=== PATIENT | male | born 1990 | race Caucasian/White ===

== ENCOUNTER 2023-02-25 23:19 | Emergency (ER) | payer OTHER ==
[~2023-02-25] VITALS: Ht 177.8 cm; Wt 163.5 kg
[~2023-02-25 23:19] MED LIST: HYDROCODON-ACE1 EA10 PO; ONDANSETRON ODT4 MG PO
--- OUTSIDE RECORDS SUMMARY | 2023-02-25 23:26 | XMS ---
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 - 2 Visits in 30 Days CARE PROVIDERS -Sonja- Dentist: Activities Volunteer [facility] PHONE: [phone] [facility]ARG[facility] Current PHONE: [phone] Jennifer has no Care Guidelines for this patient. Pee VISIT COUNT (12 MO.) [facility] [address] TOTAL 8 NOTE: Visits indicate total known visits. ED/UCC VISIT TRACKING (12 MO.) 02/25/2023 23:[address] [facility] [place] TYPE: Emergency COMPLAINT: - COUGH 01/27/2023 22:[address] [facility] [place] TYPE: Emergency COMPLAINT: - BLOOD IN STOOL DIAGNOSES: - Acute pancreatitis without necrosis or infection, unspecified - Melena - Unspecified abdominal pain 11/05/2022 20:02 [facility] TYPE: Emergency DIAGNOSES: - Benign paroxysmal vertigo, unspecified ear 09/07/2022 22:00 [facility] TYPE: Emergency DIAGNOSES: - Unspecified multiple injuries, initial encounter 08/19/2022 21:28 [facility] TYPE: Emergency DIAGNOSES: - Plantar fascial fibromatosis 05/06/2022 14:37 [facility] TYPE: Emergency DIAGNOSES: - Diarrhea, unspecified - Left lower quadrant pain - ABDOMINAL PAIN 05/05/2022 01:02 [facility] [place] [place] [facility] DIAGNOSES: - Acute gastritis without bleeding - Abd pain,Emesis - GI Bleeding 04/09/2022 12:33 [facility] TYPE: Emergency DIAGNOSES: - Acute upper respiratory infection, unspecified - Elevated blood-pressure reading, without diagnosis of hypertension INPATIENT VISIT TRACKING (12 MO.) No inpatient visits to display in this time frame [email or web address]
[2023-02-26 01:39] LABS: BASOPHILS 0.3 % (0-2); EOSINOPHILS 2.6 % (0-6); HEMOGLOBIN 13.5 g/dL (12.0-18.0); MCH 30.1 (27-36); MCHC 34.7 g/dl (30-36); MCV 86.7 fl (81-99); NEUTROPHILS 77.1 % (39-80); PLATELET COUNT 157 K/uL (140-440); RBC 4.49 M/ul (4.3-5.7)
[2023-02-26 01:54] LABS: ALBUMIN 3.8 g/dL (3.4-5.0); ALBUMIN/GLOBULIN RATIO 1.12 (1.1-2.4); ANION GAP 13.8 (7-21); BILIRUBIN, TOTAL 0.9 ng/dL (0.2-1.0); BUN/CREATININE RATIO 12.19 (6.0-28.6); CALCIUM 7.9 mg/dL (8.5-10.1); CREATININE, SERUM 1.23 mg/dL (0.70-1.30); MAGNESIUM 1.7 mg/dL (1.8-2.4); POTASSIUM 3.8 mmol/L (3.5-5.1); PROTEIN, TOTAL 7.2 g/dL (6.4-8.2)
[2023-02-26 02:00] LABS: BILIRUBIN, URINE NEGATIVE (negative); BLOOD/HGB, URINE NEGATIVE (Negative); KETONE, URINE NEGATIVE (Negative); LEUK ESTERASE, URINE NEGATIVE (negative); NITRITE, URINE NEGATIVE (negative)
[2023-02-26 02:08] LABS: INFLUENZA B NAA NEGATIVE (NEGATIVE); RESPIRATORY SYNCYTIAL VIR NAA NEGATIVE (NEGATIVE)
[2023-02-26] MEDS ORDERED: TAMIFLU75 MG PO (02:24)
[2023-02-26 03:05] VITALS: BP 101/77
== END 2023-02-26 03:05 | disposition home or self-care (01) ==
LOC: ED 23:19
PROVIDERS: Internal Medicine
DX: J10.1 Influenza due to other identified influenza virus with other respiratory manifestations (principal); I10 Essential (primary) hypertension; Z88.5 Allergy status to narcotic agent; Z20.822 Contact with and (suspected) exposure to COVID-19
CPT/HCPCS: 36415; 71045; 80053; 81003; 83735; 85025; 87502; 94640; 96374; 99284-25; A9270; C9803; J2405; J7121; U0002

== ENCOUNTER 2023-05-02 02:56 | Emergency (ER) | payer OTHER ==
[~2023-05-02] VITALS: Ht 177.8 cm; Wt 161.3 kg
[~2023-05-02 02:56] MED LIST changes: +TAMIFLU75 MG PO
[2023-05-02] MEDS ORDERED: CYCLOBENZAPRINE10 MG PO (03:32)
[2023-05-02] MEDS ORDERED: methylPREDNISolone 4 MG HOME.PACK PO ONE (03:45)
[2023-05-02] MEDS ORDERED: CYCLOBENZAPRINE HCL 10 MG HOME.PACK PO ONE (03:45)
[2023-05-02 03:49] VITALS: BP 142/73
== END 2023-05-02 03:50 | disposition home or self-care (01) ==
LOC: ED 02:56
DX: S39.012A Strain of muscle, fascia and tendon of lower back, initial encounter (principal); I10 Essential (primary) hypertension; F41.9 Anxiety disorder, unspecified; X50.1XXA Overexertion from prolonged static or awkward postures, initial encounter; Z88.5 Allergy status to narcotic agent
CPT/HCPCS: 99283

== ENCOUNTER 2023-07-15 15:53 | Emergency (ER) | payer BC ==
[~2023-07-15] VITALS: Ht 177.8 cm; Wt 163.2 kg
[~2023-07-15 15:53] MED LIST changes: +CYCLOBENZAPRINE10 MG PO
[2023-07-15] MEDS ORDERED: PSEUDOEPHEDRINE HCL 30 MG TAB PO ONE (18:30)
[2023-07-15] MEDS ORDERED: MECLIZINE HCL 25 MG TAB PO ONE (18:30)
[2023-07-15] MEDS ORDERED: MECLIZINE HCL25 MG PO (18:41)
[2023-07-15] MEDS ORDERED: NASAL DECONGEST30 MG PO (18:41)
[2023-07-15 18:58] VITALS: BP 118/83
--- NOTE | 2023-07-19 07:18 | EKG ---
[facility] [address] [facility] [place], [place] [address] Signed Normal sinus rhythm Normal ECG No previous ECGs available Confirmed by Conor Ahmadi MD ([id number]) on 07/19/2023 7:19:10 AM Electronically Signed By: OCNOR AHMADI 07/19/23 0718 PATIENT NAME: LAST MURRAY FLORESITA Electrocardiogram DATE OF : 88 PHYSICIAN: CONOR AHMADI REPORT #: [id number] REPORT IS CONFIDENTIAL AND NOT TO BE RELEASED WITHOUT AUTHORIZATION
== END 2023-07-15 18:59 | disposition home or self-care (01) ==
LOC: ED 15:53
DX: H81.12 Benign paroxysmal vertigo, left ear (principal); I10 Essential (primary) hypertension; Z88.5 Allergy status to narcotic agent
CPT/HCPCS: 80053; 83735; 84484; 85025; 93005; 93010; 99284-25; A9270

== ENCOUNTER 2024-01-15 13:37 | Emergency (ER) | payer OTHER ==
[~2024-01-15] VITALS: Ht 177.8 cm; Wt 160.8 kg
[~2024-01-15 13:37] MED LIST changes: +MECLIZINE HCL25 MG PO; +NASAL DECONGEST30 MG PO
[2024-01-15 14:14] LABS: BASOPHILS 0.8 % (0-2); EOSINOPHILS 4.5 % (0-6); HEMATOCRIT 40.1 % (35.0-50.0); HEMOGLOBIN 14.3 g/dL (12.0-18.0); MCH 31.2 (27-36); MCHC 35.6 g/dl (30-36); MCV 87.7 fl (81-99); MONOCYTES 6.7 % (0-12); PLATELET COUNT 202 K/uL (140-440); RBC 4.58 M/ul (4.3-5.7); RDW 13.7 (10.5-15.0)
[2024-01-15] MEDS ORDERED: ondansetron HCL 4 MG/2 ML VIAL IV ONE (14:15)
[2024-01-15] MEDS ORDERED: SODIUM CHLORIDE 0.9% 1,000 ML IV ONE (14:15)
[2024-01-15] MEDS ORDERED: PANTOPRAZOLE SODIUM 40 MG/10 ML VIAL IV ONE (14:15)
[2024-01-15 14:26] LABS: ALBUMIN 3.8 g/dL (3.4-5.0); ALBUMIN/GLOBULIN RATIO 1.15 (1.1-2.4); ALCOHOL, MEDICAL <3 ng/dL (<3); ALKALINE PHOSPHATASE 82 U/L (46-116); ALT (SGPT) 38 U/L (14-59); ANION GAP 12.2 (7-21); AST (SGOT) 10 U/L (15-37); BILIRUBIN, TOTAL 0.6 ng/dL (0.2-1.0); BUN/CREATININE RATIO 17.14 (6.0-28.6); CALCIUM 8.6 mg/dL (8.5-10.1); CARBON DIOXIDE 29 mmol/L (21-32); CHLORIDE 104 mmol/L (98-107); CREATININE, SERUM 1.05 mg/dL (0.70-1.30); GLOMERULAR FILTRATION RATE,EST 96 mL/min (>60); POTASSIUM 4.2 mmol/L (3.5-5.1); PROTEIN, TOTAL 7.1 g/dL (6.4-8.2); UREA NITROGEN 18 mg/dL (7-18)
[2024-01-15] MEDS ORDERED: ONDANSETRON ODT4 MG PO (16:37)
[2024-01-15] MEDS ORDERED: PROTONIX40 MG PO (16:37)
[2024-01-15 17:08] VITALS: BP 128/69
== END 2024-01-15 17:52 | disposition home or self-care (01) ==
LOC: ED 13:37
PROVIDERS: Emergency Medicine
DX: K92.0 Hematemesis (principal); I10 Essential (primary) hypertension; Z88.5 Allergy status to narcotic agent
CPT/HCPCS: 36415; 74177; 80053; 80307; 83690; 85025; 96375; 99284-25; G0480; J2405; J2470; J7030; Q9967

== ENCOUNTER 2024-02-09 17:08 | Emergency (ER) | payer OTHER ==
[~2024-02-09] VITALS: Ht 177.8 cm; Wt 162.0 kg
[~2024-02-09 17:08] MED LIST changes: +PROTONIX40 MG PO
--- OUTSIDE RECORDS SUMMARY | 2024-02-09 17:14 | XMS ---
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 - 2 Visits in 30 Days CARE PROVIDERS -, [facility] Dentist: Medical Lab Assistant Current [place] PHONE: [phone] -Sonja- Dentist: Medical Lab Assistant [facility] PHONE: [phone] Jennifer has no Care Guidelines for this patient. ENirmala VISIT COUNT (12 MO.) [address] [place] [address] TOTAL 5 NOTE: Visits indicate total known visits. ED/UCC VISIT TRACKING (12 MO.) 02/09/2024 17:08 [facility] TYPE: Emergency COMPLAINT: - VOMITING 01/15/2024 13:37 [facility] TYPE: Emergency COMPLAINT: - VOMITING BLOOD DIAGNOSES: - Allergy status to narcotic agent - Essential (primary) hypertension - Hematemesis 07/15/2023 15:53 [facility] [place] TYPE: Emergency COMPLAINT: - DIZZINESS DIAGNOSES: - Allergy status to narcotic agent - Benign paroxysmal vertigo, left ear - Dizziness and giddiness - Essential (primary) hypertension 05/02/2023 02:[address] [facility] [place] TYPE: Emergency COMPLAINT: - BACK PAIN DIAGNOSES: - Allergy status to narcotic agent - Anxiety disorder, unspecified - Essential (primary) hypertension - Low back pain, unspecified - Overexertion from prolonged static or awkward postures, initial encounter - Strain of muscle, fascia and tendon of lower back, initial encounter 02/25/2023 23:20 [facility] [place] TYPE: Emergency COMPLAINT: - COUGH DIAGNOSES: - Allergy status to narcotic agent - Contact with and (suspected) exposure to COVID-19 - Essential (primary) hypertension - Influenza due to other identified influenza virus with other respiratory manifestations - Shortness of breath INPATIENT VISIT TRACKING (12 MO.) No inpatient visits to display in this time frame [email or web address]
[2024-02-09] MEDS ORDERED: LIDOCAINE & ANTACID 35 ML BTL PO ONE (19:30)
[2024-02-09] MEDS ORDERED: PANTOPRAZOLE SODIUM 40 MG/10 ML VIAL IV ONE (19:30)
[2024-02-09] MEDS ORDERED: ondansetron HCL 4 MG/2 ML VIAL IV ONE (19:30)
[2024-02-09] MEDS ORDERED: KETOROLAC TROMETHAMINE 30 MG/ML VIAL IV ONE (19:30)
[2024-02-09 19:50] LABS: BASOPHILS 0.7 % (0-2); EOSINOPHILS 5.1 % (0-6); HEMATOCRIT 39.2 % (35.0-50.0); HEMOGLOBIN 13.9 g/dL (12.0-18.0); LYMPHOCYTES 22.7 % (24-44); MCHC 35.5 g/dl (30-36); MCV 87.5 fl (81-99); MONOCYTES 7.1 % (0-12); NEUTROPHILS 64.4 % (39-80); PLATELET COUNT 194 K/uL (140-440); RBC 4.48 M/ul (4.3-5.7)
[2024-02-09 20:15] LABS: ALBUMIN 3.6 g/dL (3.4-5.0); ALBUMIN/GLOBULIN RATIO 1.09 (1.1-2.4); ANION GAP 10.2 (7-21); BILIRUBIN, TOTAL 0.6 ng/dL (0.2-1.0); BUN/CREATININE RATIO 15.15 (6.0-28.6); CALCIUM 8.4 mg/dL (8.5-10.1); CREATININE, SERUM 0.99 mg/dL (0.70-1.30); POTASSIUM 4.2 mmol/L (3.5-5.1); PROTEIN, TOTAL 6.9 g/dL (6.4-8.2)
[2024-02-09 20:54] LABS: BILIRUBIN, URINE NEGATIVE (negative); BLOOD/HGB, URINE NEGATIVE (Negative); KETONE, URINE NEGATIVE (Negative); LEUK ESTERASE, URINE NEGATIVE (negative); NITRITE, URINE NEGATIVE (negative); PH, URINE 5.5 (5-7)
[2024-02-09] MEDS ORDERED: CARAFATE1 GM PO (21:00)
[2024-02-09 21:10] VITALS: BP 128/76
== END 2024-02-09 21:11 | disposition home or self-care (01) ==
LOC: ED 17:08
PROVIDERS: Family Medicine
DX: K29.70 Gastritis, unspecified, without bleeding (principal); I10 Essential (primary) hypertension; Z88.5 Allergy status to narcotic agent; Z79.899 Other long term (current) drug therapy
CPT/HCPCS: 36415; 80053; 81003; 83690; 85025; 96374; 96375; 99284-25; J1885; J2470

== ENCOUNTER 2024-05-16 05:48 | Emergency (ER) | payer OTHER ==
[~2024-05-16] VITALS: Ht 177.8 cm; Wt 163.7 kg
[~2024-05-16 05:48] MED LIST changes: +CARAFATE1 GM PO
[2024-05-16 06:08] LABS: BASOPHILS 0.6 % (0-2); EOSINOPHILS 4.4 % (0-6); HEMOGLOBIN 14.4 g/dL (12.0-18.0); LYMPHOCYTES 27.3 % (24-44); MCH 30.6 (27-36); MCHC 35.1 g/dl (30-36); MCV 87.2 fl (81-99); MONOCYTES 9.3 % (0-12); NEUTROPHILS 58.4 % (39-80); PLATELET COUNT 197 K/uL (140-440); RDW 14.4 (10.5-15.0)
[2024-05-16 06:09] LABS: BILIRUBIN, URINE NEGATIVE (negative); BLOOD/HGB, URINE NEGATIVE (Negative); KETONE, URINE NEGATIVE (Negative); LEUK ESTERASE, URINE NEGATIVE (negative); NITRITE, URINE NEGATIVE (negative)
[2024-05-16] MEDS ORDERED: ondansetron HCL 4 MG/2 ML VIAL IV ONE (06:15)
[2024-05-16 06:29] LABS: ALBUMIN 3.8 g/dL (3.4-5.0); ALBUMIN/GLOBULIN RATIO 1.19 (1.1-2.4); ANION GAP 10.2 (7-21); BILIRUBIN, TOTAL 0.9 mg/dL (0.2-1.0); BUN/CREATININE RATIO 13.15 (6.0-28.6); CALCIUM 8.7 mg/dL (8.5-10.1); CREATININE, SERUM 1.14 mg/dL (0.70-1.30); POTASSIUM 4.2 mmol/L (3.5-5.1)
[2024-05-16] MEDS ORDERED: LACTATED RINGER'S 1,000 ML IV ONE (06:30)
[2024-05-16 07:10] LABS: CORONAVIRUS COVID-19 AG NEGATIVE (NEGATIVE); INFLUENZA A AG NEGATIVE (NEGATIVE); INFLUENZA B AG NEGATIVE (NEGATIVE)
[2024-05-16] MEDS ORDERED: ONDANSETRON ODT8 MG PO (07:12)
[2024-05-16] MEDS ORDERED: TRAMADOL HCL50 MG PO (07:12)
[2024-05-16] MEDS ORDERED: ONDANSETRON 4 MG HOME.PACK SL ONE (07:30)
[2024-05-16] MEDS ORDERED: TRAMADOL HCL 50 MG HOME.PACK PO ONE (07:30)
[2024-05-16 07:50] VITALS: BP 158/65
== END 2024-05-16 07:44 | disposition home or self-care (01) ==
LOC: ED 05:48
PROVIDERS: Family Medicine
DX: A08.4 Viral intestinal infection, unspecified (principal); I10 Essential (primary) hypertension; Z88.5 Allergy status to narcotic agent
CPT/HCPCS: 36415; 74177; 80053; 81003; 83690; 83735; 85025; 99284-25; A9270; J2405; J7121; Q9967